=== PATIENT | male | born 1955 | race Caucasian/White ===

== ENCOUNTER 2023-02-15 10:00 | Inpatient (IN) ==
[2023-02-15] MEDS ORDERED: D5W IV ONE (11:34)
[2023-02-15] MEDS ORDERED: NS 250 ML IV IV ONE (11:34)
[2023-02-15] MEDS ORDERED: LOPRESSOR INJ 5 MG AMP ONE (11:34)
[2023-02-15] MEDS ORDERED: DOBUTAMINE 1000 MG/250 ML IV ONE (11:34)
[2023-02-15] MEDS ORDERED: HEPARIN SODIUM IN D5W 25,000 UNITS/500 ML BAG ONE (12:30)
[2023-02-15 12:47] LABS: BASOPHILS # (AUTO) 0.1 X10^3/uL (0.0-0.1); BASOPHILS % (AUTO) 0.5 % (0.2-1.0); EOSINOPHILS # (AUTO) 0.2 x10^3/uL (0.0-0.2); EOSINOPHILS % (AUTO) 0.9 % (0.9-2.9); HEMATOCRIT 44.3 % (42.0-54.0); HEMOGLOBIN 14.6 g/dL (13.5-18.0); MEAN CORPUSCULAR HEMOGLOBIN 30.9 pg (27.0-34.0); MEAN CORPUSCULAR VOLUME 93.7 fL (80.0-100.0); MONOCYTES # (AUTO) 1.5 x10^3/uL (0.3-0.8); MONOCYTES % (AUTO) 8.2 % (0.0-13.0); NEUTROPHILS # (AUTO) 14.2 x10^3/uL (2.2-4.8); NEUTROPHILS % (AUTO) 79.4 % (42.0-75.0); PLATELET COUNT 417 X10^3/uL (150.0-450.0); RED BLOOD COUNT 4.73 X10^6/uL (4.7-6.0); RED CELL DISTRIBUTION WIDTH 14.1 % (11.6-16.5); WHITE BLOOD COUNT 17.9 X10^3/uL (3.6-10.0)
[2023-02-15 12:56] LABS: ALANINE AMINOTRANSFERASE 20 Units/L (12-78); ALBUMIN 3.4 g/dL (3.4-5.0); ALKALINE PHOSPHATASE 174 Units/L (46-116); ASPARTATE AMINO TRANSFERASE 17 Units/L (15-37); BLOOD UREA NITROGEN 10 mg/dL (7-18); CALCIUM 9.2 mg/dL (8.5-10.1); CARBON DIOXIDE 31.6 mmol/L (21-32); CHLORIDE 101 mmol/L (98-107); CREATININE 0.83 mg/dL (0.70-1.30); GLUCOSE 93 mg/dL (65-99); POTASSIUM 4.1 mmol/L (3.5-5.1); SODIUM 140 mmol/L (136-145); TOTAL PROTEIN 8.1 g/dL (6.4-8.2); eGFR NON BLACK RACES > 60 (>60)
[2023-02-15] MEDS ORDERED: HEPARIN SODIUM INJ 5000 UNITS IVP ONE ×2 (13:20→19:52)
[2023-02-15] MEDS: NICOTINE PATCH TD SCH (13:41)
[2023-02-15] MEDS: HEPARIN SODIUM IN D5W 25,000 UNITS/500 ML BAG IV PRN (13:42)
[2023-02-15] MEDS: DILAUDID INJ IVP PRN ×2 (13:44→21:42)
[2023-02-15] MEDS: ZOSYN VIAL 3.375 GRAMS 3.375 G in NS 100 ML IV 100 ML IV SCH ×2 (17:49→21:09)
[2023-02-15] MEDS: PERCOCET TAB 5/325 MG PO PRN ×2 (18:26→23:35)
--- NOTE | 2023-02-15 19:08 | EKG ---
Test Reason : Pre op Blood Pressure : */* mmHG Vent. Rate : 96 BPM Atrial Rate : 96 BPM P-R Int : 126 ms QRS Dur : 80 ms QT Int : 340 ms P-R-T Axes : 87 90 83 degrees QTc Int : 429 ms Normal sinus rhythm Biatrial enlargement Rightward axis Pulmonary disease pattern Abnormal ECG No previous ECGs available Confirmed by Davie Conrad MD ([id number] on 02/16/2023 7:29:54 AM Referred By: Confirmed By: Davie Conrad MD
[2023-02-15] MEDS: Atrovent NEB TX 0.02% NEB SCH (21:00)
[2023-02-16] MEDS: DILAUDID INJ IVP PRN ×4 (01:45→21:21)
[2023-02-16] MEDS ORDERED: HEPARIN SODIUM INJ 5000 UNITS IVP ONE ×4 (02:41→22:09)
[2023-02-16] MEDS: ZOSYN VIAL 3.375 GRAMS 3.375 G in NS 100 ML IV 100 ML IV SCH ×3 (05:03→21:21)
[2023-02-16] MEDS: PERCOCET TAB 5/325 MG PO PRN ×3 (05:08→19:20)
--- NOTE | 2023-02-16 06:08 | RAD ---
HISTORYCellulitis ischemicSTUDYPortable AP chestCOMPARISONNoneFINDINGSHeart size and configuration normal with clear lungs and pleural spaces.IMPRESSIONNo acute chest abnormality identified.Electronically signed by: BELIA MANRIQUEZ (Feb 16, 2023 06:07:16)
--- NOTE | 2023-02-16 06:10 | RAD ---
HISTORYWOUNDS W/CELLULITIS AND ISCHEMIASTUDYFOOT, LEFT three-viewCOMPARISONNoneFINDINGSNo acute cortical disruption or dislocation can be identified. No significant soft tissue swelling or injury can be seen. Calcaneal enthesophytes.IMPRESSIONNo acute fracture or dislocation.Electronically signed by: BATSHEVA URBINA (Feb 16, 2023 06:07:54)
[2023-02-16] MEDS: Atrovent NEB TX 0.02% NEB SCH ×2 (09:12→20:00)
[2023-02-16] MEDS ORDERED: HEPARIN SODIUM INJ 5000 UNITS ONE (09:22)
[2023-02-16] MEDS: VASOTEC TAB 20 MG PO SCH (09:29)
[2023-02-16] MEDS ORDERED: OMNIPAQUE 350 mg/mL 100 mL BTL 100 ML ONE (09:46)
[2023-02-16] MEDS ORDERED: OMNIPAQUE 350 mg/mL 50 mL BTL 50 ML ONE (09:46)
[2023-02-16] MEDS: NICOTINE PATCH TD SCH (09:47)
--- NOTE | 2023-02-16 11:26 | CT ---
HISTORYleft leg ischemiaSTUDYCTA AORTA WITH RUNOFFCOMPARISONnoneTECHNIQUEAxial images through the abdomen pelvis and bilateral legs was performed after the administration of contrast. 3D MIPS images were performed. CT scan was performed following ALARA (As low as Reasonably Achievable).Coronal and Sagittal reformatted images were performed.FINDINGSThe lung bases demonstrate peribronchial thickening, there is some atelectasis at the right base.The liver, spleen and pancreas demonstrate no dominant lesions no gallstones. No intra or extrahepatic biliary dilatationThe stomach is not distendedThere is no adrenal masses. There bilateral normal enhancing kidneys without hydronephrosis. There is [id number] constipation,no significant colitis,no retroperitoneal masses.Pelvis: The urinary bladder is distended, the prostate is mildly enlarged with coarse calcification measuring 3.6 x 4.8 centimeters,there is soft tissue density projecting in the left lower pelvis could represent an enlarge seminal vesicle in the left. There is no dominant pelvic adenopathy no diverticulitisBone windows no acute fractures,patient is status post posterior fusion of the lumbar spine from L1-L2 to L4-L5 producing artifactAngiogram there is normal enhancement of the celiac trunk and the superior mesenteric artery with mild plaque in the mid med superior mesenteric artery without evidence of high-grade stenosisThere is calcification at the proximal right renal artery with 50 percent narrowing, the left demonstrate also 50 percent narrowing.There is atherosclerotic changes of the abdominal aorta with calcifications,there is calcification at the common iliac arteries with 60 percent stenosis in the left. There is 50 percent narrowing along the right common iliac artery,there is calcification of the right external iliac artery with an area of 70 percent narrowing. There is enhancement of the right common femoral artery at the bifurcation, there is lack of enhancement with occlusion of the right superficial femoral artery, the profunda femoral artery demonstrate enhancing there is reconstitution of the most distal right superficial femoral artery and the popliteal artery,there is an enhancing tibioperoneal trunk with the anterior tibialis artery taking off from the peroneal artery,there are two dominant enhancing vessels, the anterior and the posterior tibialis artery, the peroneal artery demonstrate decreased enhancement. There is an enhancing dorsal pedis artery,the posterior tibialis artery is enhancing to the level of the tibiotalar joint,the plantar branches are not well seenIn left, there is occlusion of the left external iliac artery without enhancement, there is reconstitution of a left profunda femoral artery, there is a tiny proximal superficial femoral artery with few muscular branches. There is reconstitution of a small popliteal artery with high-grade stenosis at the takeoff of the anterior tibialis artery,there is also 50 percent stenosis at the takeoff of the posterior tibialis artery. There are 2 main vessels in the calf area,there is a small enhancing dorsal pedis artery as well as the posterior tibialis artery the plantar branches are seen as well as the distal dorsal pedis artery in the delayed images.IMPRESSIONOcclusion of the left external iliac artery and the left superficial femoral artery with reconstitution of the distal left popliteal artery with 2 dominant vessels in the calf and patency of the dorsal pedis artery and the plantar branches with suspected high-grade stenosis at the takeoff of the anterior tibialis artery.Occlusion of the right femoral superficial artery with reconstitution of the distal vessel and the popliteal artery with two dominant enhancing vessels in the calf and enhancing dorsal pedis artery; however no plantar branches are seen.Suspected 70 percent stenosis the right external iliac arteryElectronically signed by: Adela Gomez (Feb 16, 2023 11:11:15)
[2023-02-16 12:28] VITALS: BMI 15.7
[2023-02-16] MEDS ORDERED: TOPROL XL PO ONE (13:45)
[2023-02-16] MEDS: TOPROL XL PO SCH (13:55)
[2023-02-16] MEDS ORDERED: TOPROL XL PO SCH (14:00)
[2023-02-16] MEDS: HEPARIN SODIUM IN D5W 25,000 UNITS/500 ML BAG IV PRN (17:49)
[2023-02-17] MEDS: DILAUDID INJ IVP PRN ×4 (03:48→19:10)
[2023-02-17] MEDS ORDERED: NS 500 ML IV 500 ML IV PRN (03:57)
[2023-02-17] MEDS: PERCOCET TAB 5/325 MG PO PRN ×4 (05:21→21:45)
[2023-02-17] MEDS: ZOSYN VIAL 3.375 GRAMS 3.375 G in NS 100 ML IV 100 ML IV SCH ×3 (05:22→21:28)
--- NOTE | 2023-02-17 08:35 | DR.CONSULT ---
CONSULT Consultation for Day of: Date: 02/16/23 Chief Complaint Chief Complaint: leg pain, cp 5 months ago Allergies Allergies Allergy/AdvReac Type Severity Reaction Status Date / Time No Known Allergies Allergy Verified 02/15/23 12:54 History of Present Illness History of Present Illness: 67 yo male with bad PVD per cta today- rest left leg pain- for surgery once cleared- cant walk 10 yards due to leg- cp 5 months ago in car- cath 10-20 years ago: ok- has htn, ? lipids, still smokes. ekg: nsr ana m rad, cxr: nad, labs: wbc 17k, hct 44, plt 417k, cr 0.8, Past Surgical History Surgical History: Ortho Surgery Social History Does patient currently use any type of tobacco product: Yes (1.5 PPD) Have you used tobacco products in the last 12 months: Yes Type of Tobacco Use: Cigarettes Alcohol Use: None Drug Use: None Medications Home Medications: No Known Allergies Allergy (Verified 02/15/23 12:54) CONTINUE taking the following medications baclofen 20 mg tablet 20 mg PO TID PRN 02/15/23 [History] celecoxib 200 mg capsule 200 mg PO QDAY 02/15/23 [History] cephalexin 500 mg capsule 500 mg PO BID 02/15/23 [History] enalapril maleate 20 mg tablet 20 mg PO QDAY 02/15/23 [History] fluticasone fur. 200 mcg-umeclid 62.5 mcg-vilant 25 mcg inhalat.powder (Trelegy Ellipta) 1 ea inhalation QDAY 02/15/23 [History] hydrocodone 10 mg-acetaminophen 325 mg tablet 1 tab PO TID PRN 02/15/23 [History] Physical Exam Vital Signs: Vital Signs Temperature 97.6 F Pulse Rate 109 Pulse Rate 94 Pulse Rate 83 Pulse Rate 83 Pulse Rate 79 Pulse Rate 79 Pulse Rate 80 Pulse Rate 79 Pulse Rate 78 Respiratory Rate 34 Respiratory Rate 15 Respiratory Rate 21 Respiratory Rate 21 Respiratory Rate 17 Respiratory Rate 17 Respiratory Rate 18 Respiratory Rate 80 Respiratory Rate 15 Respiratory Rate 18 Blood Pressure 117/62 Blood Pressure 117/62 Blood Pressure 132/63 Blood Pressure 132/68 Blood Pressure 128/72 Blood Pressure 128/72 Blood Pressure 129/66 O2 Sat by Pulse Oximetry 96 O2 Sat by Pulse Oximetry 96 O2 Sat by Pulse Oximetry 96 O2 Sat by Pulse Oximetry 96 O2 Sat by Pulse Oximetry 96 O2 Sat by Pulse Oximetry 95 O2 Sat by Pulse Oximetry 96 O2 Sat by Pulse Oximetry 97 thin in pain from leg tachycardic clear lungs minimal distal pulses no obvious bruit in neck Plan (1) Preop cardiovascular exam: Status: Acute Narrative Support Text: will order DSE for am (2) PVD (peripheral vascular disease): Status: Acute Narrative Support Text: prior to surgery: add bb/add statin ( check lipids)- DSE (3) Smoker: Status: Acute (4) Hypertension: Status: Acute
--- NOTE | 2023-02-17 08:35 | NOTE.SOAP ---
Soap Note Note for Day of Date of Exam: 02/17/23 Subjective Data Subjective Data: HRs 90 after BB last pm, stress echo: hr to 130, normal lv, no valve issues, no pulm htn- stress: no ischemia- acceptable cv risk- given 10 mg iv bb and will also add oral bb/statin for surgery risk reduction, lipids amazing not bad so add low dose statin Objective Data Objective Data: alert ox3 hr after iv bb: 80 bp 116/60 Assessment Assessment: PVD-rest ischemia to l leg, htn,DSE: no ischemia to hr 85%, preop Plan Plan: acceptable risk for surgery- keep hr < 110 for safety- cont bb/add statin/ stop smoking
[2023-02-17] MEDS: Atrovent NEB TX 0.02% NEB SCH ×2 (09:19→20:24)
[2023-02-17] MEDS: TOPROL XL PO SCH (10:21)
[2023-02-17] MEDS: NICOTINE PATCH TD SCH (10:27)
[2023-02-17] MEDS: PRAVACHOL PO SCH ×2 (10:28→20:49)
[2023-02-17] MEDS: VASOTEC TAB 20 MG PO SCH (10:28)
[2023-02-17] MEDS: HEPARIN SODIUM IN D5W 25,000 UNITS/500 ML BAG IV PRN (13:40)
[2023-02-17] MEDS: ATIVAN TAB 1 MG PO SCH ×3 (13:49→20:49)
--- NOTE | 2023-02-17 19:01 | NOTE.SOAP ---
Soap Note Note for Day of Date of Exam: 02/17/23 Subjective Data Subjective Data: Patient stable. Pain controlled left leg . Redness improved left leg . Had stress ECHO this AM and showed no significant ischemia . Started by cardiology on beta- jemal and statin . Was supposed to have left leg intervention today to include aortogram, arteriogram left leg, stenting left iliac artery and atherectomy and angioplasty possible stenting of the left superficial femoral artery . Unfortunately , it could not be done until Monday due to the holiday weekend. . Patient has nicotine patch. C/O anxiety and gives history of significant daily alcohol use. Will start round the clock Ativan and give vitamins and Thiamine Objective Data Temperature: 97.6 F Pulse Rate: 92 Respiratory Rate: 22 Blood Pressure: 109/56 O2 Sat by Pulse Oximetry: 95 Objective Data: Left foot cool. Redness of the left foot improving . Right foot also cool. Hgb=14.6, Cr=0.83, WBC=17.9, PTT=71.9 Assessment Assessment: critical ischemia left leg , tobacco abuse, ETOH withdrawal. Plan Plan: Continue heparin drip, Nicotine patch, Ativan and thiamine and vitamins, Surgery next Monday
--- NOTE | 2023-02-17 19:20 | NOTE.SOAP ---
Soap Note Note for Day of Date of Exam: 02/16/23 Subjective Data Subjective Data: Patient doing better with better pain control of left leg. Remains on heparin drip. Seen by Cardiology and started on Beta-jemal and statin. For stress echo in AM . CTA shows Left external iliac artery occlusion and left superficial femoral artery occlusion. There's also 70 % stenosis of the right external iliac vein occlusion of the right superficial femoral artery. Objective Data Temperature: 97.6 F Pulse Rate: 95 Respiratory Rate: 19 Blood Pressure: 131/76 O2 Sat by Pulse Oximetry: 95 Objective Data: Cool feet b/l. No advancement of redness left foot Assessment Assessment: Critical ischemia left leg, also right leg (left leg in jeopardy of loss) Plan Plan: Continue heparin drip. stress ECHO tomorrow .If stress test ok will proceed with arterial intervention of the left leg. Continue antibiotics.
[2023-02-17] MEDS: NS 1,000 ML IV 1,000 ML with MAGNESIUM SULFATE 50% INJ VIAL 1 G, MVI INJ (ADULT) 10 ML IV SCH ×3 (20:47)
[2023-02-17] MEDS: THIAMINE HCL INJ IVP SCH (20:48)
[2023-02-18] MEDS: DILAUDID INJ IVP PRN ×4 (00:52→22:22)
[2023-02-18] MEDS: PERCOCET TAB 5/325 MG PO PRN (02:06)
[2023-02-18] MEDS: ATIVAN TAB 1 MG PO SCH ×3 (02:32→15:48)
[2023-02-18] MEDS: ZOSYN VIAL 3.375 GRAMS 3.375 G in NS 100 ML IV 100 ML IV SCH ×3 (05:16→21:15)
[2023-02-18] MEDS ORDERED: HEPARIN SODIUM INJ 5000 UNITS IVP ONE ×2 (05:38→18:44)
[2023-02-18] MEDS: HEPARIN SODIUM IN D5W 25,000 UNITS/500 ML BAG IV PRN (06:00)
[2023-02-18] MEDS ORDERED: ATIVAN INJ 2 MG VIAL IVP PRN (07:19)
[2023-02-18] MEDS ORDERED: ATIVAN INJ 2 MG VIAL ONE (07:24)
[2023-02-18] MEDS: THORAZINE INJ 25 MG AMP IV PRN ×3 (07:50→10:28)
[2023-02-18] MEDS ORDERED: THORAZINE INJ 25 MG AMP ONE (07:50)
[2023-02-18] MEDS: THIAMINE HCL INJ IVP SCH ×2 (08:13→21:15)
[2023-02-18] MEDS: NICOTINE PATCH TD SCH (08:17)
[2023-02-18] MEDS: TOPROL XL PO SCH (10:10)
[2023-02-18] MEDS: VASOTEC TAB 20 MG PO SCH (10:10)
[2023-02-18] MEDS ORDERED: GEODON INJ IM ONE (12:59)
[2023-02-18] MEDS ORDERED: GEODON INJ IM NR (13:00)
[2023-02-18] MEDS ORDERED: PHENOBARBITAL SODIUM INJ 65 MG VIAL IM PRN (13:46)
[2023-02-18] MEDS ORDERED: MAALOX or MYLANTA PO PRN (13:46)
[2023-02-18] MEDS ORDERED: KAOPECTATE (NEW FORMULA) PO PRN (13:46)
[2023-02-18] MEDS ORDERED: MILK OF MAGNESIA PO PRN (13:46)
[2023-02-18] MEDS ORDERED: MOTRIN TAB 800 MG PO PRN (13:46)
[2023-02-18] MEDS ORDERED: LIBRIUM PO PRN (13:46)
[2023-02-18] MEDS ORDERED: MAGNESIUM SULFATE 1 GRAM/100 mL PREMIX 1 G/100 ML BAG IV SCH (14:00)
[2023-02-18] MEDS ORDERED: PHENOBARBITAL SODIUM INJ 65 MG VIAL ONE ×2 (14:10→14:12)
[2023-02-18 15:05] LABS: BASOPHILS # (AUTO) 0.1 X10^3/uL (0.0-0.1); HEMOGLOBIN 12.9 g/dL (13.5-18.0)
[2023-02-18 15:08] LABS: BASOPHILS % (AUTO) 0.5 % (0.2-1.0); EOSINOPHILS % (AUTO) 0.3 % (0.9-2.9); HEMATOCRIT 39.4 % (42.0-54.0); LYMPHOCYTES # (AUTO) 1.7 X10^3/uL (1.3-2.9); LYMPHOCYTES % (AUTO) 9.7 % (21.0-51.0); MEAN CORPUSCULAR HEMOGLOBIN 30.6 pg (27.0-34.0); MEAN CORPUSCULAR HGB CONC 32.9 g/dL (33.0-35.0); MEAN CORPUSCULAR VOLUME 93.1 fL (80.0-100.0); MEAN PLATELET VOLUME 7.1 fL (7.4-11.0); MONOCYTES # (AUTO) 1.2 x10^3/uL (0.3-0.8); NEUTROPHILS # (AUTO) 14.4 x10^3/uL (2.2-4.8); NEUTROPHILS % (AUTO) 82.5 % (42.0-75.0); PLATELET COUNT 396 X10^3/uL (150.0-450.0); RED BLOOD COUNT 4.23 X10^6/uL (4.7-6.0); WHITE BLOOD COUNT 17.5 X10^3/uL (3.6-10.0)
[2023-02-18 15:18] LABS: ALANINE AMINOTRANSFERASE 19 Units/L (12-78); ALBUMIN 2.9 g/dL (3.4-5.0); ALKALINE PHOSPHATASE 135 Units/L (46-116); ASPARTATE AMINO TRANSFERASE 20 Units/L (15-37); BLOOD UREA NITROGEN 10 mg/dL (7-18); CALCIUM 8.7 mg/dL (8.5-10.1); CARBON DIOXIDE 28.5 mmol/L (21-32); CHLORIDE 103 mmol/L (98-107); COR CA(FOR HYPOALB) 9.6 mg/dL (8.5-10.1); CREATININE 0.85 mg/dL (0.70-1.30); GLUCOSE 100 mg/dL (65-99); POTASSIUM 3.8 mmol/L (3.5-5.1); SODIUM 143 mmol/L (136-145); TOTAL PROTEIN 7.5 g/dL (6.4-8.2); eGFR NON BLACK RACES > 60 (>60)
[2023-02-18] MEDS ORDERED: THORAZINE INJ 25 MG AMP IV ONE (15:40)
[2023-02-18 17:34] LABS: BILIRUBIN,URINE NEGATIVE (NEGATIVE); BLOOD/HEMOGLOBIN,URINE 3+ (NEGATIVE); GLUCOSE, URINE NEGATIVE (NEGATIVE); KETONES,URINE NEGATIVE (NEGATIVE); LEUKOCYTE ESTERASE ,URINE NEGATIVE (NEGATIVE); NITRITES,URINE NEGATIVE (NEGATIVE); PROTEIN,URINE 1+ (NEGATIVE); UROBILINOGEN,URINE NORMAL (NORMAL)
[2023-02-18 17:45] LABS: APPEARANCE,URINE CLEAR (CLEAR); BACTERIA,URINE TRACE /HPF (NEGATIVE); COLOR,URINE PALE YELLOW (YELLOW); RBC,URINE 0-2 /HPF (0-3); SQUAMOUS EPITHELIAL CELL,UR NEGATIVE /HPF (NEGATIVE)
[2023-02-18] MEDS: PHENOBARBITAL TAB 30 MG (32.4MG) PO SCH (18:10)
[2023-02-18] MEDS ORDERED: HEPARIN SODIUM INJ 5000 UNITS ONE (18:44)
[2023-02-18] MEDS: NS 1,000 ML IV 1,000 ML with MAGNESIUM SULFATE 50% INJ VIAL 1 G, MVI INJ (ADULT) 10 ML IV SCH ×3 (19:21)
[2023-02-18] MEDS: Atrovent NEB TX 0.02% NEB SCH (20:00)
--- NOTE | 2023-02-18 23:29 | NOTE.SOAP ---
Soap Note Note for Day of Date of Exam: 02/18/23 Subjective Data Subjective Data: Patient remains on a Heparin drip. Patient now in full-blown delirium tremens requiring multiple doses of phenobarbital, Thorazine and Ativan. He is receiving thiamine and multivitamins. Remains on beta jemal and Statin. Objective Data Temperature: 98.1 F Pulse Rate: 100 Respiratory Rate: 26 Blood Pressure: 122/70 O2 Sat by Pulse Oximetry: 99 Objective Data: Patient is sedated but stable. Redness of the dorsum of the left foot wound nearly resolved. Left foot is warm with no palpable pulse in the left groin or distally. Assessment Assessment: Remain on Heparin drip. Continue to treat delirium tremens as above. Continue IV antibiotics treat cellulitis. Continue beta blockers and statins Plan Plan: as above. Delirium tremens will need to be cleared before the patient can be taken safely to the operating room.
[2023-02-19] MEDS: HEPARIN SODIUM IN D5W 25,000 UNITS/500 ML BAG IV PRN ×2 (01:21→19:14)
[2023-02-19] MEDS: ATIVAN TAB 1 MG PO SCH ×4 (01:42→18:36)
[2023-02-19] MEDS: PRAVACHOL PO SCH ×2 (01:42→21:18)
[2023-02-19] MEDS: AMBIEN PO SCH ×2 (01:42→20:14)
[2023-02-19] MEDS: PHENOBARBITAL TAB 30 MG (32.4MG) PO SCH ×3 (01:43→12:47)
[2023-02-19] MEDS: ZOSYN VIAL 3.375 GRAMS 3.375 G in NS 100 ML IV 100 ML IV SCH ×3 (05:13→21:00)
[2023-02-19] MEDS: DILAUDID INJ IVP PRN ×5 (07:37→23:04)
[2023-02-19 08:17] LABS: HEMOGLOBIN 11.6 g/dL (13.5-18.0); MEAN CORPUSCULAR VOLUME 92.2 fL (80.0-100.0)
[2023-02-19 08:20] LABS: BASOPHILS # (AUTO) 0.1 X10^3/uL (0.0-0.1); BASOPHILS % (AUTO) 0.6 % (0.2-1.0); EOSINOPHILS # (AUTO) 0.1 x10^3/uL (0.0-0.2); EOSINOPHILS % (AUTO) 0.5 % (0.9-2.9); HEMATOCRIT 35.1 % (42.0-54.0); LYMPHOCYTES # (AUTO) 2.1 X10^3/uL (1.3-2.9); LYMPHOCYTES % (AUTO) 12.2 % (21.0-51.0); MEAN CORPUSCULAR HEMOGLOBIN 30.5 pg (27.0-34.0); MEAN CORPUSCULAR HGB CONC 33.1 g/dL (33.0-35.0); MEAN PLATELET VOLUME 8.3 fL (7.4-11.0); MONOCYTES # (AUTO) 1.5 x10^3/uL (0.3-0.8); MONOCYTES % (AUTO) 9.1 % (0.0-13.0); NEUTROPHILS % (AUTO) 77.6 % (42.0-75.0); PLATELET COUNT 434 X10^3/uL (150.0-450.0); RED BLOOD COUNT 3.81 X10^6/uL (4.7-6.0); RED CELL DISTRIBUTION WIDTH 13.7 % (11.6-16.5); WHITE BLOOD COUNT 16.7 X10^3/uL (3.6-10.0)
[2023-02-19 08:26] LABS: ALANINE AMINOTRANSFERASE 19 Units/L (12-78); ALBUMIN 2.3 g/dL (3.4-5.0); ALKALINE PHOSPHATASE 106 Units/L (46-116); ASPARTATE AMINO TRANSFERASE 51 Units/L (15-37); BLOOD UREA NITROGEN 11 mg/dL (7-18); CALCIUM 8.3 mg/dL (8.5-10.1); CARBON DIOXIDE 23.7 mmol/L (21-32); CHLORIDE 105 mmol/L (98-107); COR CA(FOR HYPOALB) 9.7 mg/dL (8.5-10.1); CREATININE 0.75 mg/dL (0.70-1.30); GLUCOSE 84 mg/dL (65-99); POTASSIUM 3.6 mmol/L (3.5-5.1); SODIUM 140 mmol/L (136-145); TOTAL PROTEIN 6.4 g/dL (6.4-8.2); eGFR NON BLACK RACES > 60 (>60)
[2023-02-19] MEDS ORDERED: CONSULT PHARMACY - POTASSIUM & MAGNESIUM XX SCH (09:00)
[2023-02-19] MEDS: Atrovent NEB TX 0.02% NEB SCH ×2 (09:03→21:00)
[2023-02-19] MEDS: VASOTEC TAB 20 MG PO SCH (09:24)
[2023-02-19] MEDS: THIAMINE HCL INJ IVP SCH ×2 (09:25→20:14)
[2023-02-19] MEDS: TOPROL XL PO SCH (09:25)
[2023-02-19] MEDS: PERCOCET TAB 5/325 MG PO PRN ×3 (09:26→21:18)
[2023-02-19] MEDS: NICOTINE PATCH TD SCH (09:27)
[2023-02-19] MEDS ORDERED: K-DUR TAB 20 MEQ PO ONE (10:00)
[2023-02-19] MEDS: NS 1,000 ML IV 1,000 ML with MAGNESIUM SULFATE 50% INJ VIAL 1 G, MVI INJ (ADULT) 10 ML IV SCH ×6 (10:33→18:47)
[2023-02-19] MEDS: MAG-OX TAB PO SCH (10:34)
--- NOTE | 2023-02-19 10:36 | DR.CONSULT ---
CONSULT Consultation for Day of: Date: 02/19/23 Chief Complaint Chief Complaint: delirium, DTs Allergies Allergies Allergy/AdvReac Type Severity Reaction Status Date / Time No Known Allergies Allergy Verified 02/15/23 12:54 History of Present Illness History of Present Illness: Mr Mcbride is a 67y/o male who is currently admitted by Dr Pacheco for left leg PVD and left foot wound. He is currently on heparin drip. He has a hx of chronic alcohol use. Yesterday, patient was confused and combative. He was noted to be in DTs. He was started on detox protocol. He also required restraints. Medicine was consulted for further management. He is doing a lot better today. He is alert & oriented. He is not combative therefore restraints were removed. He refused to take medications as per the detox protocol this morning. He was educated about why he was started on that and his behavior yesterday. He states he is feeling better now and does not need to take any more "pills". He was told that if he feels jittery or anxious to let the staff know. He drinks alcohol daily and his last drink was a day prior to his admission. Patient denies any seizures or hx of intubation from withdrawal. He states he has never been admitted for detox. Plan: monitor closely in ICU. Educated patient regarding his condition. Detox protocol prn. Continue thiamine and MVI. Continue heparin drip and IV antibiotics. Replace electrolytes as needed. Monitor AM labs/imaging. Past Surgical History Surgical History: Ortho Surgery Social History Does patient currently use any type of tobacco product: Yes (1.5 PPD) Have you used tobacco products in the last 12 months: Yes Type of Tobacco Use: Cigarettes Alcohol Use: None Drug Use: None Medications Home Medications: No Known Allergies Allergy (Verified 02/15/23 12:54) CONTINUE taking the following medications baclofen 20 mg tablet 20 mg PO TID PRN 02/15/23 [History] celecoxib 200 mg capsule 200 mg PO QDAY 02/15/23 [History] cephalexin 500 mg capsule 500 mg PO BID 02/15/23 [History] enalapril maleate 20 mg tablet 20 mg PO QDAY 02/15/23 [History] fluticasone fur. 200 mcg-umeclid 62.5 mcg-vilant 25 mcg inhalat.powder (Trelegy Ellipta) 1 ea inhalation QDAY 02/15/23 [History] hydrocodone 10 mg-acetaminophen 325 mg tablet 1 tab PO Q6H PRN 02/15/23 [History] aspirin 81 mg chewable tablet 81 mg PO QDAY 02/18/23 [History] enalapril maleate 20 mg tablet (Vasotec) 20 mg PO QDAY 02/18/23 [History] ibuprofen 800 mg tablet 800 mg PO TID 02/18/23 [History] tiotropium 2.5 mcg-olodaterol 2.5 mcg/actuation mist for inhalation (Stiolto Respimat) 2 puff inhalation QDAY 02/18/23 [History] Review of Systems Constitutional: No Symptoms Reported Eyes: No Symptoms Reported Respiratory: No Symptoms Reported Cardiovascular: No Symptoms Reported Gastrointestinal: No Symptoms Reported Musculoskeletal: Leg Pain and Foot Pain Skin: No Symptoms Reported Neurological: No Symptoms Reported Physical Exam Vital Signs: Vital Signs Temperature 97.6 F Temperature 98.3 F Pulse Rate 88 Pulse Rate 77 Pulse Rate 88 Pulse Rate 89 Pulse Rate 62 Pulse Rate 66 Pulse Rate 75 Pulse Rate 79 Pulse Rate 75 Respiratory Rate 18 Respiratory Rate 17 Respiratory Rate 19 Respiratory Rate 18 Respiratory Rate 18 Respiratory Rate 23 Respiratory Rate 24 Respiratory Rate 17 Respiratory Rate 18 Respiratory Rate 19 Blood Pressure 123/71 Blood Pressure 113/64 Blood Pressure 113/64 Blood Pressure 134/69 Blood Pressure 131/65 Blood Pressure 128/65 Blood Pressure 127/72 Blood Pressure 121/65 O2 Sat by Pulse Oximetry 100 O2 Sat by Pulse Oximetry 100 O2 Sat by Pulse Oximetry 90 O2 Sat by Pulse Oximetry 98 O2 Sat by Pulse Oximetry 100 O2 Sat by Pulse Oximetry 100 O2 Sat by Pulse Oximetry 100 O2 Sat by Pulse Oximetry 100 O2 Sat by Pulse Oximetry 100 Oriented: Normal Eyes: Normal Nose: Normal Respiratory: Clear Throughout Cardiovascular: Normal Auscultation: Bowel Sounds: Normal Palpation: Normal Tenderness: Normal Musculoskeletal: Left, Leg and Foot (ulcer noted on the bottom, mild tenderness, no drainage ) Psychiatric: Normal Mood Description: Hostile Affect: Angry Speech Pattern: Clear and Appropriate Plan (1) Delirium: Status: Acute (2) Alcohol withdrawal delirium: Status: Acute (3) PVD (peripheral vascular disease): Status: Acute (4) Smoker: Status: Acute (5) Hypertension: Status: Acute Qualifiers: Hypertension type: primary hypertension Qualified Code(s): I10 - [place] (primary) hypertension
[2023-02-19] MEDS ORDERED: ATIVAN TAB 1 MG PO PRN (15:31)
[2023-02-19] MEDS ORDERED: PHENOBARBITAL TAB 30 MG (32.4MG) PO PRN (15:34)
[2023-02-19] MEDS ORDERED: PHENOBARBITAL TAB 15 MG (16.2MG) PO PRN (15:34)
--- NOTE | 2023-02-19 21:58 | NOTE.SOAP ---
Soap Note Note for Day of Date of Exam: 02/19/23 Subjective Data Subjective Data: Delirium tremens has resolved after significant use of Ativan, phenobarbital, and Thorazine. Required restraints . Now awake and alert . C/O severe pain of left foot( rest pain) despite 1mg of Dilaudid IV q 4 hr . Increased Dilaudid to 1mg q 2hr and still co pain. Will add po Percocet. Objective Data Temperature: 98.4 F Pulse Rate: 84 Respiratory Rate: 17 Blood Pressure: 134/74 O2 Sat by Pulse Oximetry: 99 Objective Data: Awake and alert. Denies that this was alcohol withdrawal . C/o left foot pain. Redness left foot nearly resolved. Wound left foot stable . Hgb=11.6,Cr=0.75, WBC= 16.7 PTT=78. Continues on heparin drip. Assessment Assessment: Critical ischemia left leg with unrelenting rest pain left leg with cellulitis. Has had negative stress echo. Complicated by delirium tremens now resolved. Plan Plan: Continue heparin drip and IV antibiotics. Monitor for prolonged alcohol withdrawal. Tomorrow be a holiday. Will plan peripheral vascular intervention of the left leg 729 AM. Plan probable left iliac artery stenting as well as probable left Superficial femoral artery atherectomy, possible drug coated balloon angioplasty and possible stenting.
[2023-02-19 22:06] VITALS: O2SAT 100
[2023-02-20] MEDS: PERCOCET TAB 5/325 MG PO PRN ×3 (01:14→11:30)
[2023-02-20] MEDS: DILAUDID INJ IVP PRN ×4 (02:34→13:50)
[2023-02-20 05:11] LABS: BASOPHILS # (AUTO) 0.1 X10^3/uL (0.0-0.1); BASOPHILS % (AUTO) 0.8 % (0.2-1.0); EOSINOPHILS # (AUTO) 0.3 x10^3/uL (0.0-0.2); EOSINOPHILS % (AUTO) 2.2 % (0.9-2.9); HEMATOCRIT 35.2 % (42.0-54.0); HEMOGLOBIN 11.7 g/dL (13.5-18.0); LYMPHOCYTES # (AUTO) 2.6 X10^3/uL (1.3-2.9); LYMPHOCYTES % (AUTO) 20.6 % (21.0-51.0); MEAN CORPUSCULAR HEMOGLOBIN 30.6 pg (27.0-34.0); MEAN CORPUSCULAR HGB CONC 33.2 g/dL (33.0-35.0); MEAN CORPUSCULAR VOLUME 92.3 fL (80.0-100.0); MONOCYTES # (AUTO) 1.2 x10^3/uL (0.3-0.8); MONOCYTES % (AUTO) 9.7 % (0.0-13.0); NEUTROPHILS # (AUTO) 8.4 x10^3/uL (2.2-4.8); NEUTROPHILS % (AUTO) 66.7 % (42.0-75.0); PLATELET COUNT 395 X10^3/uL (150.0-450.0); RED BLOOD COUNT 3.82 X10^6/uL (4.7-6.0); RED CELL DISTRIBUTION WIDTH 13.9 % (11.6-16.5); WHITE BLOOD COUNT 12.6 X10^3/uL (3.6-10.0)
[2023-02-20 05:37] LABS: ALANINE AMINOTRANSFERASE 22 Units/L (12-78); ALBUMIN 2.2 g/dL (3.4-5.0); ALKALINE PHOSPHATASE 109 Units/L (46-116); ASPARTATE AMINO TRANSFERASE 31 Units/L (15-37); BLOOD UREA NITROGEN 16 mg/dL (7-18); CALCIUM 8.1 mg/dL (8.5-10.1); CARBON DIOXIDE 29.8 mmol/L (21-32); CHLORIDE 106 mmol/L (98-107); COR CA(FOR HYPOALB) 9.5 mg/dL (8.5-10.1); CREATININE 0.84 mg/dL (0.70-1.30); GLUCOSE 84 mg/dL (65-99); POTASSIUM 3.9 mmol/L (3.5-5.1); SODIUM 140 mmol/L (136-145); TOTAL PROTEIN 6.3 g/dL (6.4-8.2); eGFR NON BLACK RACES > 60 (>60)
[2023-02-20] MEDS: ZOSYN VIAL 3.375 GRAMS 3.375 G in NS 100 ML IV 100 ML IV SCH ×2 (08:41→14:39)
[2023-02-20] MEDS: Atrovent NEB TX 0.02% NEB SCH ×2 (08:41→12:35)
[2023-02-20] MEDS: NICOTINE PATCH TD SCH (09:12)
[2023-02-20] MEDS: THIAMINE HCL INJ IVP SCH (09:12)
[2023-02-20] MEDS: TOPROL XL PO SCH (09:12)
[2023-02-20] MEDS: VASOTEC TAB 20 MG PO SCH (09:12)
--- NOTE | 2023-02-20 10:48 | PCM.PROG ---
Progress Note Progress Note for Day of Date of Exam: 02/20/23 Subjective Subjective: Patient seen at bedside, no acute events overnight. He is feeling fine. Denies any tremors or anxiety. Denies N/V/D. He is requesting to be transferred, waiting to discuss it with Dr Pacheco. He states he continues to have left leg pain. Labs/imaging reviewed Plan: continue care as per surgery. Continue heparin and IV antibiotics. Continue pain control. Continue fluids and thiamine. Patient is alert and oriented. He refused to take any of the detox medications yesterday. He did well overnight. He is requesting to be transferred to [place]. Rest of management as per primary, will sign off. Past Medical Family Social History Allergies: Allergies No Known Allergies Allergy (Verified 02/15/23 12:54) Vital Signs and I&O's Vital Signs: Vital Signs Temperature 97.5 F Temperature 98.1 F Pulse Rate 72 Pulse Rate 68 Pulse Rate 82 Pulse Rate 69 Pulse Rate 67 Pulse Rate 71 Pulse Rate 73 Pulse Rate 71 Respiratory Rate 18 Respiratory Rate 24 Respiratory Rate 19 Respiratory Rate 24 Respiratory Rate 22 Respiratory Rate 25 Respiratory Rate 22 Respiratory Rate 24 Respiratory Rate 14 Respiratory Rate 18 Respiratory Rate 17 Respiratory Rate 21 Blood Pressure 132/77 Blood Pressure 142/83 Blood Pressure 147/71 Blood Pressure 142/71 Blood Pressure 130/79 Blood Pressure 138/75 Blood Pressure 146/74 O2 Sat by Pulse Oximetry 100 O2 Sat by Pulse Oximetry 100 O2 Sat by Pulse Oximetry 100 O2 Sat by Pulse Oximetry 100 O2 Sat by Pulse Oximetry 100 O2 Sat by Pulse Oximetry 100 O2 Sat by Pulse Oximetry 100 O2 Sat by Pulse Oximetry 100 Intake and Output: Intake & Output 02/17/23 02/18/23 02/19/23 02/20/23 23:59 23:59 23:59 23:59 Intake Total 2203 / 2203 3384.2 / 3384.2 3070.8 / 3070.8 1541.9 / 1541.9 Output Total 0 / 0 700 / 700 670 / 670 280 / 280 Balance 2203 / 2203 2684.2 / 2684.2 2400.8 / 2400.8 1261.9 / 1261.9 Physical Exam Oriented: Normal Eyes: Normal Nose: Normal Cardiovascular: Normal Auscultation: Bowel Sounds: Normal Tenderness: Normal Musculoskeletal: Left, Leg and Foot (ulcer noted on the bottom, mild tenderness, no drainage ) Psychiatric: Normal Mood Description: Hostile Affect: Angry Speech Pattern: Clear and Appropriate Laboratory and Diagnostics 02/20/23 04:55 02/20/23 04:55 Labs: 02/15/23 12:45 Foot - Left Wound Culture - Final Morganella Morganii 02/15/23 12:45 Foot - Left Wound Culture - Final Morganella Morganii Laboratory WBC 12.6 X10^3/uL (3.6-10.0) H 02/20/23 04:55 RBC 3.82 X10^6/uL (4.7-6.0) L 02/20/23 04:55 Hgb 11.7 g/dL (13.5-18.0) L 02/20/23 04:55 Hct 35.2 % (42.0-54.0) L 02/20/23 04:55 MCV 92.3 fL (80.0-100.0) 02/20/23 04:55 MCH 30.6 pg (27.0-34.0) 02/20/23 04:55 MCHC 33.2 g/dL (33.0-35.0) 02/20/23 04:55 RDW 13.9 % (11.6-16.5) 02/20/23 04:55 Plt Count 395 X10^3/uL (150.0-450.0) 02/20/23 04:55 MPV 7.0 fL (7.4-11.0) L 02/20/23 04:55 Neut % (Auto) 66.7 % (42.0-75.0) 02/20/23 04:55 Lymph % (Auto) 20.6 % (21.0-51.0) L 02/20/23 04:55 [place] % (Auto) 9.7 % (0.0-13.0) 02/20/23 04:55 Eos % (Auto) 2.2 % (0.9-2.9) 02/20/23 04:55 Baso % (Auto) 0.8 % (0.2-1.0) 02/20/23 04:55 Neut # (Auto) 8.4 x10^3/uL (2.2-4.8) H 02/20/23 04:55 Lymph # (Auto) 2.6 X10^3/uL (1.3-2.9) 02/20/23 04:55 [place] # (Auto) 1.2 x10^3/uL (0.3-0.8) H 02/20/23 04:55 Eos # (Auto) 0.3 x10^3/uL (0.0-0.2) H 02/20/23 04:55 Baso # (Auto) 0.1 X10^3/uL (0.0-0.1) 02/20/23 04:55 Absolute Nucleated RBC 0.0 /100WBC 02/20/23 04:55 PT 12.0 SECONDS (11.8-14.3) 02/15/23 12:32 INR Target Range - 02/15/23 12:32 INR 0.90 (0.8-1.3) 02/15/23 12:32 APTT 70.3 SECONDS (22.9-36.5) H 02/20/23 04:55 PTT Comment - 02/20/23 04:55 Sodium 140 mmol/L (136-145) 02/20/23 04:55 Corrected Sodium TNP 02/20/23 04:55 Potassium 3.9 mmol/L (3.5-5.1) 02/20/23 04:55 Chloride 106 mmol/L (98-107) 02/20/23 04:55 Carbon Dioxide 29.8 mmol/L (21-32) 02/20/23 04:55 BUN 16 mg/dL (7-18) 02/20/23 04:55 Creatinine 0.84 mg/dL (0.70-1.30) 02/20/23 04:55 Est GFR (MDRD) Af Amer > 60 (>60) 02/20/23 04:55 Est GFR (MDRD) Non-Af > 60 (>60) 02/20/23 04:55 Glucose 84 mg/dL (65-99) 02/20/23 04:55 Lactic Acid 0.8 mmol/L (0.4-2.0) 02/20/23 04:55 Calcium 8.1 mg/dL (8.5-10.1) L 02/20/23 04:55 Corrected Calcium 9.5 mg/dL (8.5-10.1) 02/20/23 04:55 Magnesium 2.0 mg/dL (2.0-2.9) 02/20/23 04:55 Total Bilirubin 0.30 mg/dL (0.2-1.0) 02/20/23 04:55 AST 31 Units/L (15-37) 02/20/23 04:55 ALT 22 Units/L (12-78) 02/20/23 04:55 Alkaline Phosphatase 109 Units/L (46-116) 02/20/23 04:55 Total Protein 6.3 g/dL (6.4-8.2) L 02/20/23 04:55 Albumin 2.2 g/dL (3.4-5.0) L 02/20/23 04:55 Globulin 4.1 g/dL (2.5-4.5) 02/20/23 04:55 Albumin/Globulin Ratio 0.5 Ratio (1.1-2.1) L 02/20/23 04:55 Triglycerides 84 mg/dL (0-150) 02/16/23 08:55 Cholesterol 145 mg/dL (0-200) 02/16/23 08:55 LDL Cholesterol, Calc 57 mg/dL (0-100) 02/16/23 08:55 HDL Cholesterol 71 mg/dL (40-60) H 02/16/23 08:55 Cholesterol/HDL Ratio 2.0 (0.0-5.0) 02/16/23 08:55 Specimen Type Catherized urine 02/18/23 17:14 Urine Color Pale yellow (YELLOW) 02/18/23 17:14 Urine Appearance Clear (CLEAR) 02/18/23 17:14 Urine pH 7.0 (5.0 - 8.0) 02/18/23 17:14 Ur Specific [place] 1.010 (1.000-1.030) 02/18/23 17:14 Urine Protein 1+ (NEGATIVE) 02/18/23 17:14 Urine Glucose (UA) Negative (NEGATIVE) 02/18/23 17:14 Urine Ketones Negative (NEGATIVE) 02/18/23 17:14 Urine Blood 3+ (NEGATIVE) 02/18/23 17:14 Urine Nitrite Negative (NEGATIVE) 02/18/23 17:14 Urine Bilirubin Negative (NEGATIVE) 02/18/23 17:14 Urine Urobilinogen Normal (NORMAL) 02/18/23 17:14 Ur Leukocyte Esterase Negative (NEGATIVE) 02/18/23 17:14 Urine RBC 0-2 /HPF (0-3) 02/18/23 17:14 Urine WBC 3-5 /HPF (0-5) 02/18/23 17:14 Ur Squamous Epith Cells Negative /HPF (NEGATIVE) 02/18/23 17:14 Urine Bacteria Trace /HPF (NEGATIVE) 02/18/23 17:14 Urine Mucus Rare /HPF (NEGATIVE) 02/18/23 17:14 Ur Culture Indicated? No/not indicated 02/18/23 17:14 Plan (1) Delirium: Status: Acute (2) Alcohol withdrawal delirium: Status: Acute (3) PVD (peripheral vascular disease): Status: Acute (4) Smoker: Status: Acute (5) Hypertension: Status: Acute Qualifiers: Hypertension type: primary hypertension Qualified Code(s): I10 - [place] (primary) hypertension
[2023-02-20] MEDS ORDERED: MAG-OX TAB ONE (11:34)
[2023-02-20] MEDS: MAG-OX TAB PO SCH (11:35)
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
[2023-02-20 15:13] VITALS: TEMP 98.5
[2023-02-20 16:11] VITALS: BP 122/58; PULSE 80; RESP 23
[2023-02-21] MEDS ORDERED: PHENOBARBITAL TAB 15 MG (16.2MG) PO SCH (17:00)
== END 2023-02-20 16:00 | disposition short-term general hospital (02) | DRG 300 ==
LOC: ICU 11:34
PROVIDERS: ADMIT Surgery; ATTEND Surgery
DX: L03.116 Cellulitis of left lower limb; R07.89 Other chest pain; L97.528 Non-pressure chronic ulcer of other part of left foot with other specified severity; Z01.810 Encounter for preprocedural cardiovascular examination; F17.200 Nicotine dependence, unspecified, uncomplicated; I70.222 Atherosclerosis of native arteries of extremities with rest pain, left leg; Z78.1 Physical restraint status; R26.81 Unsteadiness on feet; F10.931 Alcohol use, unspecified with withdrawal delirium; I10 Essential (primary) hypertension; I73.89 Other specified peripheral vascular diseases; R41.0 Disorientation, unspecified